=== PATIENT | female | born 1970 | race Caucasian/White ===

== ENCOUNTER 2025-04-03 12:33 | Outpatient (CLI) | payer OTHER ==
[2025-04-03 13:42] LABS: #Basophils 0.08 10x3/uL (0.0-0.2); #Eosinophils 0.14 10x3/uL (0.0-0.7); #Monocytes 0.76 10x3/uL (0.11-0.59); #Neutrophils 7.04 10x3/uL (1.40-6.50); %Basophils 0.8 % (0.0-1.0); %Eosinophils 1.3 % (0.0-10.0); %Lymphocytes 23.6 % (21.0-51.0); %Monocytes 7.2 % (0.0-10.0); %Neutrophils 66.7 % (42.0-75.0); Hematocrit 43.0 % (36.0-47.0); Hemoglobin 13.6 g/dL (12.0-16.0); Mean Corpuscular Hemoglobin 28.6 pg (27.0-31.0); Mean Corpuscular Volume 90.3 fL (78.0-98.0); Platelet Count 353 10x3/uL (130-400); Red Blood Cell (RBC) Count 4.76 mill/uL (4.20-5.40); White Blood Cell (WBC) Count 10.55 10x3/uL (4.8-10.8)
[2025-04-03 14:03] LABS: INR-International Normal Ratio 1.0; PTT 36.9 sec (22.9-36.1); Prothrombin Time 12.8 sec (12.0-14.7)
[2025-04-03 14:09] LABS: Anion Gap 14 mmol/L (10-20); BUN (Urea Nitrogen) 14 mg/dL (9.8-20.1); Calc. Creatinine Clearance 0 mL/min (70-130); Calcium 9.9 mg/dL (7.8-10.44); Carbon Dioxide 26 mmol/L (22-29); Chloride 105 mmol/L (98-107); Glucose 99 mg/dL (70-105); Potassium 4.1 mmol/L (3.5-5.1); Sodium 141 mmol/L (136-145)
[2025-04-03 14:10] LABS: BHCG - Serum Indeterminate (NEGATIVE); Pregs Control Background? CLEAR/WHITE (CLR/WHITE); Pregs Control Bar Appear? YES (CONTROL BAR)
[2025-04-03 14:55] LABS: Glucose, Urine (Dipstick) Normal (Negative); Leukocyte 75 Leu/uL (Negative); Protein, Urine (Dipstick) 20 mg/dL (Neg-Trace); Specific Gravity, Urine 1.013 (1.002-1.036)
[2025-04-03 14:56] LABS: Bacteria/HPF 1+ HPF (None Seen)
== END 2025-04-03 12:34 | disposition home or self-care (01) ==
LOC: LABBT 12:33
PROVIDERS: ATTEND Urology
DX: Z01.818 Encounter for other preprocedural examination (principal); N20.0 Calculus of kidney
CPT/HCPCS: 80048; 81001; 84703; 85025; 85610; 85730; 87086; 93005; 93010

== ENCOUNTER 2025-04-10 08:41 | Day surgery (SDC) | payer OTHER ==
[2025-04-03 12:58] VITALS: BMI 26.4
[2025-04-10] MEDS ORDERED: LevoFLOXacin D5W 500 mg (100 mL) BAG ONE (10:51)
[2025-04-10] MEDS ORDERED: PHENYLEPHRINE-NS 100 MCG/ML 10 ML SYRINGE ONE ×2 (13:18→13:20)
[2025-04-10] MEDS ORDERED: Rocuronium Bromide 10 MG/ML (10ML VIAL) ONE (13:18)
[2025-04-10] MEDS ORDERED: PROPOFOL 20 ML ONE (13:19)
[2025-04-10] MEDS ORDERED: fentaNYL PF 100 MCG/2 ML SYRINGE ONE ×2 (13:19→14:53)
[2025-04-10] MEDS ORDERED: Glycopyrrolate 0.2 MG/ML 5 ML SYRINGE ONE (13:20)
[2025-04-10] MEDS ORDERED: Ondansetron PF 4 MG/2 ML Vial ONE (13:43)
[2025-04-10] MEDS ORDERED: SUGAMMADEX SODIUM 200 MG/2 ML VIAL ONE (14:24)
[2025-04-10] MEDS ORDERED: Oxybutynin 5 MG TAB ONE (14:50)
[2025-04-23 20:13] LABS: CA Oxalate Dihydrate 95 % (.); Color Tan (.); Stone Weight 505 mg (.)
== END 2025-04-10 15:50 | disposition home or self-care (01) ==
LOC: SDC 08:41
PROVIDERS: ATTEND Urology
PROC: 0TJB8ZZ Inspection of Bladder, Via Natural or Artificial Opening Endoscopic (ICD-10-PCS; principal; 2025-04-10)
DX: N20.0 Calculus of kidney (principal); I10 Essential (primary) hypertension; E78.5 Hyperlipidemia, unspecified
CPT/HCPCS: 74420; 82365; 88300; C1747; C1758; C1769; C2617; J1100; J1956; J2250; J2310; J2405; J2704; Q9967